=== PATIENT | female | born 1965 | race Caucasian/White ===

== ENCOUNTER 2024-05-18 10:22 | Emergency (ER) | payer MEDICARE ==
[~2024-05-18] VITALS: Ht 180.3 cm; Wt 77.1 kg
[2024-05-18 11:19] LABS: BASOPHILS ABSOLUTE AUTO 0.02 K/mm3 (0.00-0.23); BASOPHILS PERCENT AUTO 0 % (0-2); EOSINOPHILS ABSOLUTE AUTO 0.08 K/mm3 (0.00-0.68); EOSINOPHILS PERCENT AUTO 1 % (0-6); Hematocrit 41.6 % (33.0-51.0); Hemoglobin 13.7 g/dL (11.5-16.0); IMMATURE GRAN ABSOLUTE AUTO 0.03 K/mm3 (0.00-0.10); IMMATURE GRAN PERCENT AUTO 1 % (0-1); LYMPHOCYTES ABSOLUTE AUTO 1.67 K/mm3 (0.84-5.20); LYMPHOCYTES PERCENT AUTO 30 % (21-46); MONOCYTES ABSOLUTE AUTO 0.41 K/mm3 (0.16-1.47); MONOCYTES PERCENT AUTO 7 % (4-13); Mean Corpuscular HGB 28.8 pg (26.0-34.0); Mean Corpuscular HGB Conc 32.9 g/dL (31.5-36.5); Mean Corpuscular Volume 87 fL (80-100); Mean Platelet Volume 11.1 fL (9.1-12.4); NEUTROPHILS ABSOLUTE AUTO 3.35 K/mm3 (1.96-9.15); NEUTROPHILS PERCENT AUTO 60 % (41-73); Platelet Count 238 K/mm3 (150-400); RDW Coefficient Variation 16.1 % (11.7-14.2); RDW Standard Deviation 51.9 fL (35.1-46.3); Red Blood Cell Count 4.76 M/mm3 (3.80-5.20); White Blood Cell Count 5.56 K/mm3 (4.00-11.30)
[2024-05-18] MEDS ORDERED: ELIQUIS5 M3 PO (11:26)
[2024-05-18] MEDS ORDERED: PANTOPRAZOLE SO40 M2 PO (11:26)
[2024-05-18] MEDS ORDERED: GABA100 PO (11:26)
[2024-05-18] MEDS ORDERED: FUROSEMIDE20 MG PO (11:26)
[2024-05-18] MEDS ORDERED: SUCRALFATE114 PO (11:26)
[2024-05-18] MEDS ORDERED: MELA3 PO (11:27)
[2024-05-18 11:39] LABS: Albumin, Blood 3.4 g/dL (3.4-5.0); Albumin/Globulin Ratio 0.7 (0.8-1.8); Bilirubin, Total 0.6 mg/dL (0.1-1.0); Bun/Creatinine Ratio 21.3 (12.0-20.0); Calcium, Blood 9.6 mg/dL (8.5-10.1); Creatinine, Blood 0.66 mg/dL (0.40-1.00); Globulin, Blood 4.6 g/dL (2.2-4.0); Potassium, Blood 4.4 mmol/L (3.5-5.5)
[2024-05-18] MEDS ORDERED: SUCR1 PO (14:17)
== END 2024-05-18 14:25 | disposition home or self-care (01) ==
LOC: ER 10:22
PROVIDERS: Emergency Medicine
DX: K20.90 Esophagitis, unspecified without bleeding (principal); R07.9 Chest pain, unspecified; R06.00 Dyspnea, unspecified; I25.2 Old myocardial infarction; F17.210 Nicotine dependence, cigarettes, uncomplicated; Z86.711 Personal history of pulmonary embolism; Z79.01 Long term (current) use of anticoagulants; Z79.899 Other long term (current) drug therapy
CPT/HCPCS: 71260; 80053; 83880; 84484; 85025; 93005; 93010; 99285-25; Q9967

== ENCOUNTER 2024-07-11 06:40 | Emergency (ER) | payer MEDICARE ==
[~2024-07-11] VITALS: Ht 180.3 cm; Wt 79.4 kg
[~2024-07-11 06:40] MED LIST: ELIQUIS5 M3 PO; FUROSEMIDE20 MG PO; GABA100 PO; MELA3 PO; PANTOPRAZOLE SO40 M2 PO; SUCR1 PO; SUCRALFATE114 PO
[2024-07-11 07:27] LABS: BASOPHILS ABSOLUTE AUTO 0.01 K/mm3 (0.00-0.23); BASOPHILS PERCENT AUTO 0 % (0-2); EOSINOPHILS PERCENT AUTO 0 % (0-6); Hematocrit 44.2 % (33.0-51.0); Hemoglobin 14.7 g/dL (11.5-16.0); IMMATURE GRAN ABSOLUTE AUTO 0.01 K/mm3 (0.00-0.10); IMMATURE GRAN PERCENT AUTO 0 % (0-1); LYMPHOCYTES ABSOLUTE AUTO 0.91 K/mm3 (0.84-5.20); LYMPHOCYTES PERCENT AUTO 27 % (21-46); MONOCYTES ABSOLUTE AUTO 0.18 K/mm3 (0.16-1.47); MONOCYTES PERCENT AUTO 5 % (4-13); Mean Corpuscular HGB 28.6 pg (26.0-34.0); Mean Corpuscular HGB Conc 33.3 g/dL (31.5-36.5); Mean Corpuscular Volume 86 fL (80-100); Mean Platelet Volume 10.3 fL (9.1-12.4); NEUTROPHILS ABSOLUTE AUTO 2.29 K/mm3 (1.96-9.15); NEUTROPHILS PERCENT AUTO 67 % (41-73); Platelet Count 151 K/mm3 (150-400); RDW Coefficient Variation 14.2 % (11.7-14.2); RDW Standard Deviation 45.1 fL (35.1-46.3); Red Blood Cell Count 5.14 M/mm3 (3.80-5.20)
[2024-07-11 07:58] LABS: Albumin, Blood 3.3 g/dL (3.4-5.0); Albumin/Globulin Ratio 0.9 (0.8-1.8); Bilirubin, Total 0.3 mg/dL (0.1-1.0); Bun/Creatinine Ratio 15.5 (12.0-20.0); Creatinine, Blood 0.78 mg/dL (0.40-1.00); Globulin, Blood 3.8 g/dL (2.2-4.0); Potassium, Blood 3.4 mmol/L (3.5-5.5); Total Protein, Blood 7.1 g/dL (6.4-8.2)
[2024-07-11] MEDS ORDERED: Methocarbamol 500 MG Tab PO ONE (08:45)
[2024-07-11] MEDS ORDERED: Atropine/Scopalam/Hyoscam/PB 5 ML UDC PO ONE (08:45)
[2024-07-11] MEDS ORDERED: Ketorolac Tromethamine 30mg Vial IV ONE (08:45)
[2024-07-11] MEDS ORDERED: Potassium Chloride 20 MEQ TabCR PO ONE (10:00)
[2024-07-11] MEDS ORDERED: Robaxin750 MG PO (10:37)
== END 2024-07-11 10:53 | disposition home or self-care (01) ==
LOC: ER 06:40
PROVIDERS: Student in an Organized Health Care Education/Training Program
DX: J06.9 Acute upper respiratory infection, unspecified (principal); K59.00 Constipation, unspecified; E87.6 Hypokalemia; R07.89 Other chest pain; M79.10 Myalgia, unspecified site; K21.9 Gastro-esophageal reflux disease without esophagitis; Z86.711 Personal history of pulmonary embolism; Z86.74 Personal history of sudden cardiac arrest; Z79.01 Long term (current) use of anticoagulants; Z79.899 Other long term (current) drug therapy
CPT/HCPCS: 71046; 80053; 83690; 83735; 84484; 85025; 93005; 93010; 99284-25; A9270; J1885

== ENCOUNTER 2024-07-21 10:46 | Day surgery (SDC) | payer MEDICARE ==
[~2024-07-21] VITALS: Ht 180.3 cm; Wt 82.1 kg
[~2024-07-21 10:46] MED LIST changes: +ORAZINC PO; +Robaxin750 MG PO; +Vitamin B-121000 MCG PO; +Vitamin D1000 UNI1 PO
[2024-07-21] MEDS ORDERED: NS 250 ML IV ONE (11:07)
[2024-07-21] MEDS ORDERED: Heparin Sodium 1000 Units/ML 10ML MDV ONE (11:07)
[2024-07-21] MEDS ORDERED: PANT40 PO (11:09)
[2024-07-21 11:15] VITALS: BP 127/88
[2024-07-21] MEDS ORDERED: Midazolam HCl 1MG / ML 2ML Vial ONE (11:45)
[2024-07-21] MEDS ORDERED: FentaNYL Citrate 50 MCG/ML 2 ML Injection ONE (11:45)
[2024-07-21] MEDS ORDERED: NS 1,000 ML IV ONE (11:46)
[2024-07-21 12:36] VITALS: BP 123/79
[2024-07-21 12:45] VITALS: BP 115/83
[2024-07-21 13:00] VITALS: BP 107/82
[2024-07-21 13:15] VITALS: BP 103/67
[2024-07-21 13:48] VITALS: BP 115/72
--- NOTE | 2024-07-21 14:04 | NUR ---
PT AND S/O VERBALIZES UNDERSTANDING WRITTEN INSTRUCTIONS. DENIES QUESTIONS. PT IV DC'D. CATH INTACT. NO BLEEDING NOTED. PT R IJ SITE REMAINS C/D/I. PT DRESSES SELF WITHOUT DIFF. PT DC TO HOME VIA S/O BY WC
== END 2024-07-21 16:36 | disposition home or self-care (01) ==
LOC: MHTC 10:46
DX: Z45.89 Encounter for adjustment and management of other implanted devices (principal); Z79.01 Long term (current) use of anticoagulants; Z95.828 Presence of other vascular implants and grafts; Z86.711 Personal history of pulmonary embolism; Z87.891 Personal history of nicotine dependence; Z79.899 Other long term (current) drug therapy
CPT/HCPCS: 37193; 76937; 99152; 99153; C1773; C1894; J1644; J2250; J3010; J7030; J7050; Q9967

== ENCOUNTER 2024-08-11 08:05 | Day surgery (SDC) | payer MEDICARE ==
[~2024-08-11] VITALS: Ht 180.3 cm; Wt 82.0 kg
[~2024-08-11 08:05] MED LIST changes: +PANT40 PO
[2024-08-11 08:36] VITALS: BP 106/83
[2024-08-11 08:44] VITALS: BP 106/83
[2024-08-11] MEDS ORDERED: NS 250 ML IV ONE (09:19)
[2024-08-11] MEDS ORDERED: Heparin Sodium 1000 Units/ML 10ML MDV ONE (09:20)
[2024-08-11] MEDS ORDERED: Midazolam HCl 1MG / ML 2ML Vial ONE (09:30)
[2024-08-11] MEDS ORDERED: NS 1,000 ML IV ONE (09:31)
[2024-08-11] MEDS ORDERED: FentaNYL Citrate 50 MCG/ML 2 ML Injection ONE (09:31)
[2024-08-11 10:47] VITALS: BP 121/91
--- NOTE | 2024-08-11 10:51 | NUR ---
PT RETURNED TO RECOVERY ROOM IN [facility]. RIGHT IJ VENOUS SITE SOFT NON-TENDER WITH NO HEMATOMA, SLIGHT TRACT OOZING NOTED. PT IS DRINKING WATER AND TALKING WITH VISITOR. CALL LIGHT IN REACH.
[2024-08-11 11:00] VITALS: BP 122/90
[2024-08-11 11:15] VITALS: BP 114/89
--- NOTE | 2024-08-11 11:15 | NUR ---
NO CHANGES TO R IJ SITE.
--- NOTE | 2024-08-11 11:40 | NUR ---
DISCHARGE INSTRUCTIONS REVIEWED ALL QUESITONS ANSWERED. NO CHANGES TO R IJ SITE. 20 G IV DISCONTINUED FROM LEFT AC WITH INTACT CANNULA. PT ESCORTED OUT VIA WHEELCHAIR ESCORT.
== END 2024-08-11 11:40 | disposition home or self-care (01) ==
LOC: MHTC 08:05 → ORSCMMR 08:07 → MHTC 08:12
DX: Z01.810 Encounter for preprocedural cardiovascular examination (principal); Z95.828 Presence of other vascular implants and grafts; Z87.891 Personal history of nicotine dependence; Z79.899 Other long term (current) drug therapy; Z79.01 Long term (current) use of anticoagulants
CPT/HCPCS: 37193; 76937; 99152; 99153; C1769; C1773; C1894; J1644; J2250; J3010; J7030; J7050; Q9967